=== PATIENT | female | born 1930 | race Caucasian/White ===

== ENCOUNTER 2017-05-04 23:31 | Inpatient (IN) | payer OTHER ==
[~2017-05-04] VITALS: Ht 165.1 cm; Wt 52.9 kg
[~2017-05-04 23:31] MED LIST: ACETAMINOPHEN325 M1 PO; ALPRAZOLAM0.25 M2 PO; ALPRAZOLAM0.25 MG PO; AMLODIPINE BES2.5 MG PO; ARICEPT5 MG PO; ASPIR-TRIN325 M1 PO; ASPIRIN81 M1 PO; CELEBREX100 MG PO; CELEBREX200 MG PO; CIPRO250 MG PO; FEOSOL325 MG PO; HYDROCHLOROTHIA25 MG PO; K-DUR10 ME2 PO; K-DUR10 MEQ PO; KLOR-CON 1010 ME1 PO; KLOR-CON M1010 MEQ PO; LABETALOL HCL100 MG PO; LEVAQUIN750 MG PO; LIPITOR; MOTRIN600 MG PO; MULTI VIT; NORVASC5 MG PO; Normodyne,Trandate PO; Oyst-Cal D, Oscal W/ PO; PANTOPRAZOLE SO40 MG PO; PREDNISONE50 MG PO; PROAIR HFA8.5 GM IH; PROPOXYPHENE1 TABLET PO; SENOKOT S,PE1 TABLET PO; THERAGRAN1 TABLET PO; TRAMADOL HCL50 MG PO; TYLENOL EXTRA500 MG PO; TYLENOL REGULA325 MG PO; ULTRAM50 MG PO; XANAX0.25 MG PO
[2017-05-05 01:06] LABS: HEMATOCRIT 38.6 % (36.0-46.0); MCH 29.4 PG (29.0-34.0); MCHC 32.6 G/DL (30.0-36.0); MCV 90.2 FL (83-99); MEAN PLAT.VOLUME 8.5 uM^3 (9.5-12.4); PLATELET COUNT 216 K/uL (156-360); RBC DIS.WIDTH-CV 13.6 % (11.8-14.6); RBC DIS.WIDTH-SD 45.1 % (39-53); RED BLOOD COUNT 4.28 M/uL (3.80-5.20); WHITE BLOOD COUNT 9.7 K/uL (4.1-10.2)
[2017-05-05 01:18] LABS: CHLORIDE 101 mEq/L (99-109); POTASSIUM 4.1 mEq/L (3.7-5.4); SODIUM 138 mEq/L (136-147)
[2017-05-05 01:20] LABS: GLUCOSE 121 mg/dL (70-99)
[2017-05-05 01:22] LABS: ANION GAP 11 MEQ/L (2-14); TOTAL BILIRUBIN 0.6 mg/dL (0.0-1.0)
[2017-05-05 01:24] LABS: ALKALINE PHOSPHATASE 66 IU/L (3-129); GFR ESTIMATE (CALCULATED) 32 mL/min/
[2017-05-05 01:25] LABS: UREA NITROGEN (BUN) 42 mg/dL (9-23)
[2017-05-05] MEDS ORDERED: COZAAR50 MG PO (01:40)
[2017-05-05 01:47] LABS: PROTHROMBIN TIME 10.4 SEC (10.2-12.9)
[2017-05-05 01:50] LABS: PTT 29.9 SEC (25-37)
[2017-05-05 07:30] VITALS: BP 169/92
[2017-05-05 10:15] LABS: POINT-OF-CARE METER ID UU14188577
[2017-05-05 11:57] VITALS: BP 161/78
[2017-05-05 15:35] VITALS: BP 146/80
[2017-05-05 19:39] VITALS: BP 138/88
[2017-05-05 23:31] VITALS: BP 145/68
[2017-05-06 03:34] VITALS: BP 146/83
[2017-05-06 07:15] LABS: HEMATOCRIT 33.5 % (36.0-46.0); MCH 29.1 PG (29.0-34.0); MCHC 31.3 G/DL (30.0-36.0); MCV 92.8 FL (83-99); RBC DIS.WIDTH-CV 13.8 % (11.8-14.6); RBC DIS.WIDTH-SD 47.5 % (39-53); RED BLOOD COUNT 3.61 M/uL (3.80-5.20); WHITE BLOOD COUNT 9.7 K/uL (4.1-10.2)
[2017-05-06 07:30] LABS: EOSINOPHIL COUNT 0.2 K/uL (0-0.3); IMMATURE GRANULOCYTE (%) 0.4 % (0.0-0.7); INSTRUMENT ABS NEUTROPHIL CT 8.2 K/uL; LYMPHOCYTE COUNT 0.7 K/uL (1.0-2.8); MEAN PLAT.VOLUME 8.9 uM^3 (9.5-12.4); MONOCYTE COUNT 0.6 K/uL (0-0.8); NEUTROPHIL (%) 84.3 % (45-76); NEUTROPHIL COUNT 8.2 K/uL (1.8-6.4); PLAT.SUFFICIENCY DECREASED
[2017-05-06 07:31] LABS: PLATELET COUNT 143 K/uL (156-360)
[2017-05-06 07:34] VITALS: BP 137/72
[2017-05-06 07:36] LABS: ALKALINE PHOSPHATASE 139 IU/L (3-129); ANION GAP 7 MEQ/L (2-14); CHLORIDE 110 MEQ/L (99-109); GFR ESTIMATE (CALCULATED) 45 mL/min/; GLUCOSE 94 mg/dL (70-99); POTASSIUM 3.8 MEQ/L (3.7-5.4); SAMPLE HEMOLYSIS CHECK 0; SAMPLE ICTERIC CHECK 0; SAMPLE LIPEMIA CHECK 0; SODIUM 143 MEQ/L (136-147); TOTAL BILIRUBIN 0.8 MG/DL (0.0-1.0); UREA NITROGEN (BUN) 26 mg/dL (9-23)
[2017-05-06 15:29] VITALS: BP 164/77
[2017-05-06 16:48] VITALS: BP 159/77
[2017-05-06 23:32] VITALS: BP 178/81
[2017-05-07 01:04] VITALS: BP 144/77
[2017-05-07 05:56] LABS: HEMATOCRIT 33.8 % (36.0-46.0); MCH 30.8 PG (29.0-34.0); MCHC 32.8 G/DL (30.0-36.0); MCV 93.9 FL (83-99); MEAN PLAT.VOLUME 8.8 uM^3 (9.5-12.4); PLATELET COUNT 127 K/uL (156-360); RBC DIS.WIDTH-CV 13.9 % (11.8-14.6); RBC DIS.WIDTH-SD 47.2 % (39-53); WHITE BLOOD COUNT 6.3 K/uL (4.1-10.2)
[2017-05-07 06:30] LABS: ANION GAP 10 MEQ/L (2-14); CHLORIDE 109 MEQ/L (99-109); DIRECT BILIRUBIN 0.2 mg/dL (0.0-0.3); GFR ESTIMATE (CALCULATED) 50 mL/min/; GLUCOSE 103 mg/dL (70-99); POTASSIUM 3.8 MEQ/L (3.7-5.4); SAMPLE HEMOLYSIS CHECK 0; SAMPLE ICTERIC CHECK 0; SAMPLE LIPEMIA CHECK 0; SODIUM 143 MEQ/L (136-147); TOTAL BILIRUBIN 0.8 MG/DL (0.0-1.0); UREA NITROGEN (BUN) 22 mg/dL (9-23)
[2017-05-07 06:33] LABS: ALKALINE PHOSPHATASE 103 IU/L (3-129)
[2017-05-07 07:32] VITALS: BP 186/90
[2017-05-07 09:09] VITALS: BP 145/64
[2017-05-07 23:44] VITALS: BP 198/102
[2017-05-08 04:02] VITALS: BP 181/81
[2017-05-08 06:53] LABS: HEMATOCRIT 34.6 % (36.0-46.0); MCH 30.2 PG (29.0-34.0); MCHC 32.9 G/DL (30.0-36.0); MCV 91.5 FL (83-99); MEAN PLAT.VOLUME 9.2 uM^3 (9.5-12.4); PLATELET COUNT 132 K/uL (156-360); RBC DIS.WIDTH-CV 13.7 % (11.8-14.6); RBC DIS.WIDTH-SD 46.2 % (39-53); RED BLOOD COUNT 3.78 M/uL (3.80-5.20); WHITE BLOOD COUNT 8.3 K/uL (4.1-10.2)
[2017-05-08 07:35] VITALS: BP 185/89
[2017-05-08 15:58] VITALS: BP 178/82
[2017-05-08 16:10] LABS: C DIFF TOXIN NEGATIVE (NEGATIVE)
[2017-05-08 16:17] LABS: PROBE CHECK PASS; SPECIMEN PROCESSING CONTROL PASS
[2017-05-08 19:00] VITALS: BP 208/100
[2017-05-08 20:10] VITALS: BP 110/68
[2017-05-08 23:28] VITALS: BP 163/74
[2017-05-09 07:50] VITALS: BP 164/78
[2017-05-09 08:20] LABS: EOSINOPHIL (%) 4.9 % (0-5); EOSINOPHIL COUNT 0.3 K/uL (0-0.3); HEMATOCRIT 33.6 % (36.0-46.0); IMMATURE GRANULOCYTE (%) 0.3 % (0.0-0.7); LYMPHOCYTE COUNT 0.7 K/uL (1.0-2.8); MCH 29.9 PG (29.0-34.0); MCHC 32.4 G/DL (30.0-36.0); MCV 92.3 FL (83-99); MEAN PLAT.VOLUME 8.8 uM^3 (9.5-12.4); MONOCYTE (%) 9.3 % (3-12); MONOCYTE COUNT 0.6 K/uL (0-0.8); PLATELET COUNT 137 K/uL (156-360); RBC DIS.WIDTH-CV 13.8 % (11.8-14.6); RBC DIS.WIDTH-SD 46.9 % (39-53); RED BLOOD COUNT 3.64 M/uL (3.80-5.20); WHITE BLOOD COUNT 6.7 K/uL (4.1-10.2)
[2017-05-09 09:40] LABS: ANION GAP 8 MEQ/L (2-14); CHLORIDE 104 MEQ/L (99-109); GFR ESTIMATE (CALCULATED) 55 mL/min/; GLUCOSE 92 mg/dL (70-99); POTASSIUM 3.9 MEQ/L (3.7-5.4); SAMPLE HEMOLYSIS CHECK 0; SAMPLE ICTERIC CHECK 0; SAMPLE LIPEMIA CHECK 0; SODIUM 142 MEQ/L (136-147); UREA NITROGEN (BUN) 19 mg/dL (9-23)
[2017-05-09 10:58] VITALS: BP 138/63
[2017-05-09 15:40] VITALS: BP 135/84
[2017-05-09 23:28] VITALS: BP 167/88
[2017-05-10 06:26] LABS: EOSINOPHIL (%) 4.1 % (0-5); EOSINOPHIL COUNT 0.3 K/uL (0-0.3); HEMATOCRIT 33.4 % (36.0-46.0); IMMATURE GRANULOCYTE (%) 0.7 % (0.0-0.7); INSTRUMENT ABS NEUTROPHIL CT 4.5 K/uL; LYMPHOCYTE COUNT 0.7 K/uL (1.0-2.8); MCH 29.3 PG (29.0-34.0); MCHC 32.3 G/DL (30.0-36.0); MCV 90.8 FL (83-99); MONOCYTE (%) 8.6 % (3-12); MONOCYTE COUNT 0.5 K/uL (0-0.8); NEUTROPHIL COUNT 4.5 K/uL (1.8-6.4); PLATELET COUNT 158 K/uL (156-360); RBC DIS.WIDTH-CV 13.6 % (11.8-14.6); RBC DIS.WIDTH-SD 45.5 % (39-53); RED BLOOD COUNT 3.68 M/uL (3.80-5.20)
[2017-05-10 06:58] LABS: ALKALINE PHOSPHATASE 116 IU/L (3-129); ANION GAP 9 MEQ/L (2-14); CHLORIDE 100 MEQ/L (99-109); GFR ESTIMATE (CALCULATED) > 59 mL/min/; GLUCOSE 97 mg/dL (70-99); POTASSIUM 3.4 MEQ/L (3.7-5.4); SAMPLE HEMOLYSIS CHECK 0; SAMPLE ICTERIC CHECK 0; SAMPLE LIPEMIA CHECK 0; SODIUM 141 MEQ/L (136-147); TOTAL BILIRUBIN 0.8 MG/DL (0.0-1.0); UREA NITROGEN (BUN) 14 mg/dL (9-23)
[2017-05-10 07:35] VITALS: BP 152/86
[2017-05-10 15:45] VITALS: BP 178/77
[2017-05-10 23:44] VITALS: BP 152/81
[2017-05-11] VITALS (7 sets, daily range): BP systolic 133–193; BP diastolic 63–91
[2017-05-11 06:07] LABS: EOSINOPHIL (%) 3.1 % (0-5); EOSINOPHIL COUNT 0.2 K/uL (0-0.3); HEMATOCRIT 30.3 % (36.0-46.0); IMMATURE GRANULOCYTE (%) 0.6 % (0.0-0.7); INSTRUMENT ABS NEUTROPHIL CT 5.2 K/uL; LYMPHOCYTE COUNT 0.9 K/uL (1.0-2.8); MCH 30.1 PG (29.0-34.0); MCHC 33.3 G/DL (30.0-36.0); MCV 90.4 FL (83-99); MEAN PLAT.VOLUME 9.2 uM^3 (9.5-12.4); MONOCYTE (%) 8.7 % (3-12); MONOCYTE COUNT 0.6 K/uL (0-0.8); NEUTROPHIL (%) 74.9 % (45-76); NEUTROPHIL COUNT 5.2 K/uL (1.8-6.4); PLATELET COUNT 175 K/uL (156-360); RBC DIS.WIDTH-CV 13.7 % (11.8-14.6); RBC DIS.WIDTH-SD 45.5 % (39-53); RED BLOOD COUNT 3.35 M/uL (3.80-5.20); WHITE BLOOD COUNT 6.9 K/uL (4.1-10.2)
[2017-05-11 07:24] LABS: ALKALINE PHOSPHATASE 88 IU/L (3-129); ANION GAP 9 MEQ/L (2-14); CHLORIDE 100 MEQ/L (99-109); GFR ESTIMATE (CALCULATED) > 59 mL/min/; GLUCOSE 116 mg/dL (70-99); POTASSIUM 3.6 MEQ/L (3.7-5.4); SAMPLE HEMOLYSIS CHECK 0; SAMPLE ICTERIC CHECK 0; SAMPLE LIPEMIA CHECK 0; SODIUM 141 MEQ/L (136-147); TOTAL BILIRUBIN 0.8 MG/DL (0.0-1.0); UREA NITROGEN (BUN) 14 mg/dL (9-23)
[2017-05-12 00:10] VITALS: BP 178/82
[2017-05-12 03:59] VITALS: BP 161/70
[2017-05-12 06:47] LABS: HEMATOCRIT 30.5 % (36.0-46.0); MCH 29.3 PG (29.0-34.0); MCHC 32.1 G/DL (30.0-36.0); MCV 91.3 FL (83-99); MEAN PLAT.VOLUME 8.8 uM^3 (9.5-12.4); PLATELET COUNT 181 K/uL (156-360); RBC DIS.WIDTH-SD 46.5 % (39-53); RED BLOOD COUNT 3.34 M/uL (3.80-5.20); WHITE BLOOD COUNT 7.1 K/uL (4.1-10.2)
[2017-05-12 07:14] VITALS: BP 146/94
[2017-05-12 07:37] LABS: ALKALINE PHOSPHATASE 90 IU/L (3-129); ANION GAP 7 MEQ/L (2-14); CHLORIDE 102 MEQ/L (99-109); GFR ESTIMATE (CALCULATED) > 59 mL/min/; GLUCOSE 94 mg/dL (70-99); POTASSIUM 3.7 MEQ/L (3.7-5.4); SAMPLE HEMOLYSIS CHECK 0; SAMPLE ICTERIC CHECK 0; SAMPLE LIPEMIA CHECK 0; SODIUM 141 MEQ/L (136-147); TOTAL BILIRUBIN 0.8 MG/DL (0.0-1.0); UREA NITROGEN (BUN) 11 mg/dL (9-23)
[2017-05-12 15:23] VITALS: BP 180/58
[2017-05-12 18:20] VITALS: BP 133/82
[2017-05-13 00:04] LABS: ADD MIUA? NO; BILIRUBIN NEGATIVE; BLOOD NEGATIVE; COLOR YELLOW ((YELLOW)); GLUCOSE (STRIP) NEGATIVE; KETONES NEGATIVE; LEUKOCYTES NEGATIVE; NITRITE NEGATIVE; PROTEIN (STRIP) NEGATIVE; SPECIFIC GRAVITY 1.009 (1.000-1.030); UROBILINOGEN 0.2 MG/DL (0.2-1.0)
[2017-05-13 00:13] VITALS: BP 132/76
[2017-05-13 07:00] VITALS: BP 160/88
[2017-05-13 15:00] VITALS: BP 170/81
[2017-05-13 23:29] VITALS: BP 170/86
[2017-05-14 01:00] VITALS: BP 144/82
[2017-05-14] MEDS ORDERED: LOVENOX30 MG/0.3 SC (07:40)
[2017-05-14] MEDS ORDERED: AMLODIPINE BESYL5 MG PO (07:40)
[2017-05-14] MEDS ORDERED: SENNA PLUS TAB1 EACH PO (07:40)
[2017-05-14 07:57] VITALS: BP 160/80
[2017-05-14 15:30] VITALS: BP 152/76
== END 2017-05-14 16:06 | disposition home or self-care (01) | DRG 480 ==
LOC: EME 23:31 → EDOF 05-05 04:57 → 3EAST 05-05 04:57 → ENRESERV 05-05 04:58 → 3EAST 05-05 07:15
PROVIDERS: Emergency Medicine; Hospitalist; Nurse Practitioner Adult Health; Orthopaedic Surgery; Pediatrics; Physician Assistant; Physician Assistant Medical
PROC: 0QS704Z Reposition Left Upper Femur with Internal Fixation Device, Open Approach (ICD-10-PCS; principal; 2017-05-05)
DX: S72.012A Unspecified intracapsular fracture of left femur, initial encounter for closed fracture (principal); W18.30XA Fall on same level, unspecified, initial encounter; Y92.009 Unspecified place in unspecified non-institutional (private) residence as the place of occurrence of the external cause; R33.9 Retention of urine, unspecified; E87.6 Hypokalemia; J18.9 Pneumonia, unspecified organism; G93.40 Encephalopathy, unspecified; F03.90 Unspecified dementia, unspecified severity, without behavioral disturbance, psychotic disturbance, mood disturbance, and anxiety; I12.9 Hypertensive chronic kidney disease with stage 1 through stage 4 chronic kidney disease, or unspecified chronic kidney disease; N18.3 Chronic kidney disease, stage 3 (moderate); K21.9 Gastro-esophageal reflux disease without esophagitis; F41.9 Anxiety disorder, unspecified; M25.561 Pain in right knee; Z66 Do not resuscitate; Z96.651 Presence of right artificial knee joint
CPT/HCPCS: 70450; 71010; 72192; 73501; 73502; 73560; 73700; 76000; 80048; 80053; 80069; 80076; 81003; 82140; 82948; 85014; 85018; 85025; 85027; 85610; 85730; 86900; 86901; 87086; 87493; 92610 GN; 93005; 94799; 97530 GO; 97530 GP; 99281; 99285; C1713; J0456; J0690; J0696; J1650; J2270; J2405; J3010; J3475; J3480; J7030; J7040; J7050; J7120; S0028

== ENCOUNTER 2017-10-17 05:21 | Observation (INO) | payer OTHER ==
[~2017-10-17] VITALS: Ht 157.5 cm; Wt 28.4 kg
[~2017-10-17 05:21] MED LIST changes: +AMLODIPINE BESYL5 MG PO; +COZAAR50 MG PO; +LOVENOX30 MG/0.3 SC; +SENNA PLUS TAB1 EACH PO
[2017-10-17 07:16] LABS: HEMATOCRIT 39.7 % (36.0-46.0); HEMOGLOBIN 12.9 G/DL (11.9-15.5); MCH 29.6 PG (29.0-34.0); MCHC 32.5 G/DL (30.0-36.0); MCV 91.1 FL (83-99); PLATELET COUNT 243 K/uL (156-360); RBC DIS.WIDTH-CV 13.5 % (11.8-14.6); RED BLOOD COUNT 4.36 M/uL (3.80-5.20); WHITE BLOOD COUNT 10.1 K/uL (4.1-10.2)
[2017-10-17 07:33] LABS: CHLORIDE 106 mEq/L (99-109); SODIUM 142 mEq/L (136-147)
[2017-10-17 07:34] LABS: GLUCOSE 103 mg/dL (70-99)
[2017-10-17 07:38] LABS: CREATININE 0.9 mg/dL (0.6-1.3); GFR ESTIMATE (CALCULATED) > 59 mL/min/
[2017-10-17 07:39] LABS: UREA NITROGEN (BUN) 22 mg/dL (9-23)
[2017-10-17 07:55] LABS: APPEARANCE CLEAR ((CLEAR)); BILIRUBIN NEGATIVE; BLOOD NEGATIVE; COLOR YELLOW ((YELLOW)); GLUCOSE (STRIP) NEGATIVE; KETONES NEGATIVE; LEUKOCYTES NEGATIVE; NITRITE POSITIVE; PROTEIN (STRIP) NEGATIVE; SPECIFIC GRAVITY 1.013 (1.000-1.030); UROBILINOGEN 0.2 MG/DL (0.2-1.0)
[2017-10-17 08:01] LABS: BACTERIA RARE /HPF; EPITHELIAL CELLS RARE /HPF; MUCUS TRACE /LPF; RED BLOOD CELLS 0-5 /HPF (0-5); WHITE BLOOD CELLS 0-5 /HPF (0-5)
[2017-10-17] MEDS ORDERED: IRON325 M1 PO (13:12)
[2017-10-17 19:21] VITALS: BP 132/76
[2017-10-18] VITALS: BP 128/80
[2017-10-18 04:37] VITALS: BP 140/80
[2017-10-18 05:37] LABS: HEMATOCRIT 39.6 % (36.0-46.0); HEMOGLOBIN 12.6 G/DL (11.9-15.5); MCHC 31.8 G/DL (30.0-36.0); PLATELET COUNT 225 K/uL (156-360); RBC DIS.WIDTH-CV 13.3 % (11.8-14.6); RBC DIS.WIDTH-SD 44.4 % (39-53); RED BLOOD COUNT 4.35 M/uL (3.80-5.20); WHITE BLOOD COUNT 3.2 K/uL (4.1-10.2)
[2017-10-18 06:19] LABS: ALBUMIN 3.4 G/DL (3.2-4.8); ALKALINE PHOSPHATASE 65 IU/L (3-129); ALT (GPT) 8 IU/L (3-49); AST (GOT) 11 IU/L (2-34); CHLORIDE 105 MEQ/L (99-109); CREATININE 0.8 MG/DL (0.6-1.3); GFR ESTIMATE (CALCULATED) > 59 mL/min/; GLUCOSE 144 mg/dL (70-99); SODIUM 140 MEQ/L (136-147); TOTAL BILIRUBIN 0.7 MG/DL (0.0-1.0); TOTAL PROTEIN 5.6 G/DL (6.4-8.3); UREA NITROGEN (BUN) 17 mg/dL (9-23)
[2017-10-18 06:20] VITALS: BP 132/84
[2017-10-18] MEDS ORDERED: DECADRON4 MG PO (15:33)
[2017-10-18 16:44] VITALS: BP 130/71
[2017-10-18 20:00] VITALS: BP 133/70
[2017-10-19] VITALS (7 sets, daily range): BP systolic 131–172; BP diastolic 76–124
[2017-10-20 03:49] VITALS: BP 118/57
[2017-10-20 09:50] VITALS: BP 165/98
[2017-10-20 11:51] VITALS: BP 137/85
[2017-10-20] MEDS ORDERED: DOCUSATE SODIU100 MG PO (15:42)
[2017-10-20] MEDS ORDERED: FAMOTIDINE20 MG PO (15:42)
[2017-10-20 16:19] VITALS: BP 125/73
[2017-10-20 23:46] VITALS: BP 178/124
[2017-10-21 08:21] VITALS: BP 157/92
[2017-10-21 12:00] VITALS: BP 135/73
== END 2017-10-21 16:52 | disposition hospice, home (50) ==
LOC: EME 05:21 → 5WEST 12:33 → EDOF 12:33 → ENRESERV 12:35 → 5WEST 17:12
PROVIDERS: Internal Medicine; Physician Assistant
DX: S06.5X0A Traumatic subdural hemorrhage without loss of consciousness, initial encounter (principal); W19.XXXA Unspecified fall, initial encounter; F03.90 Unspecified dementia, unspecified severity, without behavioral disturbance, psychotic disturbance, mood disturbance, and anxiety; S00.12XA Contusion of left eyelid and periocular area, initial encounter; Z79.82 Long term (current) use of aspirin; Z66 Do not resuscitate
CPT/HCPCS: 70450; 71045; 72125; 80048; 80053; 81003; 85027; 97530 GO; 99281; 99285; G0378; G8978 GP CM; G8979 GP CL; G8980 GP CM; G8987 GO CM; G8988 GO CL; G8989 GO CM; J1100; J2060; J7030

== ENCOUNTER 2018-01-09 10:42 | Emergency (ER) | payer OTHER ==
[~2018-01-09] VITALS: Ht 157.5 cm; Wt 40.2 kg
[~2018-01-09 10:42] MED LIST changes: +DECADRON4 MG PO; +DOCUSATE SODIU100 MG PO; +FAMOTIDINE20 MG PO; +IRON325 M1 PO
[2018-01-09 13:52] VITALS: BP 156/101
== END 2018-01-09 14:10 ==
LOC: EDBD 10:42 → EME 10:42
DX: Z04.3 Encounter for examination and observation following other accident (principal); W18.30XA Fall on same level, unspecified, initial encounter; Y92.099 Unspecified place in other non-institutional residence as the place of occurrence of the external cause; F03.90 Unspecified dementia, unspecified severity, without behavioral disturbance, psychotic disturbance, mood disturbance, and anxiety; I10 Essential (primary) hypertension; M19.90 Unspecified osteoarthritis, unspecified site; F41.9 Anxiety disorder, unspecified; Z96.651 Presence of right artificial knee joint; Z90.49 Acquired absence of other specified parts of digestive tract; Z99.3 Dependence on wheelchair; Z66 Do not resuscitate; Z88.5 Allergy status to narcotic agent
CPT/HCPCS: 73522; 73560; 73564; 99281; 99284